=== PATIENT | male | born 1990 | race Caucasian/White ===

== ENCOUNTER 2017-02-24 21:53 | Emergency (ER) | payer BC ==
[~2017-02-24] VITALS: Ht 185.4 cm; Wt 108.9 kg
[2017-02-24] MEDS ORDERED: ALBUTEROL2.5 MG/0.5 INH (23:27)
[2017-02-24] MEDS ORDERED: TESSALON PERLE100 M1 PO (23:27)
[2017-02-24] MEDS ORDERED: ZITHROMAX250 MG PO (23:42)
== END 2017-02-25 00:04 | disposition home or self-care (01) ==
LOC: ED 21:53
DX: J18.9 Pneumonia, unspecified organism (principal)